=== PATIENT | female | born 1975 ===

== ENCOUNTER 2019-03-10 12:22 | Inpatient (IN) | payer OTHER ==
[~2019-03-10] VITALS: Ht 162.6 cm; Wt 68.9 kg
[2019-03-10] MEDS ORDERED: ZYRTEC10 M3 PO (13:20)
== END 2019-03-16 10:20 | disposition home or self-care (01) | DRG 743 ==
LOC: O/R 03-15 06:59 → SURH 03-15 09:00 → OB/GYN 03-15 18:46 → O/R 03-16 09:00 → OB/GYN 03-16 10:20 → SURH 03-22 09:00
PROVIDERS: ADMIT Obstetrics & Gynecology Gynecologic Oncology
PROC: 0UT04ZZ Resection of Right Ovary, Percutaneous Endoscopic Approach (ICD-10-PCS; 2019-03-15)
PROC: 0UB14ZZ Excision of Left Ovary, Percutaneous Endoscopic Approach (ICD-10-PCS; 2019-03-15)
PROC: 0UT54ZZ Resection of Right Fallopian Tube, Percutaneous Endoscopic Approach (ICD-10-PCS; principal; 2019-03-15 15:00)
DX: N80.1 Endometriosis of ovary (principal)